=== PATIENT | male | born 1940 | race Caucasian/White ===

== ENCOUNTER 2016-06-22 13:06 | Emergency (ER) | payer MEDICARE, OTHER ==
--- NOTE | 2016-06-22 13:24 | EDM.PDOC ---
ED HPI GI/ABDOMINAL - General Chief Complaint: Gastrointestinal Problem Stated Complaint: SICK [phone] Time Seen by Provider: 06/22/16 13:23 Source of Information: Reports: Patient, RN, RN notes reviewed History Limitations: Reports: No limitations - History of Present Illness INITIAL COMMENTS - FREE TEXT/NARRATIVE: [place] with c/o sudden onset of "room spin" dizziness with nausea and vomiting. Pt thinks that he falls to his right with every episode. Onset was at midnight last night. Pt had just driven to [place] from his home in [place]. He denies headache, ear pain/pressure, visual changes, lightheadedness, palpitations, sinus congestion/pain/pressure, fever, chills, or head injury. He had a physical exam last week and was told that his exam and labs were normal. Denies any history of vertigo. Symptom Onset Date: 06/22/16 Symptom Onset Time: 00:00 Timing/Duration: Reports: Intermittent, Waxing/waning Location: generalized Severity: moderate Improves with: Reports: other (lying still) Worsens with: Reports: other (movement, head movement) Context: Denies: sick contact, bad/questionable food, out of country travel, recent surgery, recent trauma, lifting, activity/exercise Associated Symptoms: Reports: denies other symptoms - Related Data Allergies/ADRs: Allergies Allergy/AdvReac Type Severity Reaction Status Date / Time [id number]-[id number] Reductase Allergy Muscle Verified 06/22/16 13:15 Inhibitor Aches Home Meds: Home Meds Aspirin 162 mg PO BRK 06/22/16 [History] Levothyroxine [Synthroid] 50 mcg PO ACBREAKFAST 06/22/16 [History] Loratadine [Loratadine] 10 mg PO DAILY 06/22/16 [History] Metoprolol Tartrate [Metoprolol Tartrate] 12.5 mg PO DAILY 06/22/16 [History] Omeprazole 40 mg PO 06/22/16 [History] Ramipril [Ramipril] 2.5 mg PO DAILY 06/22/16 [History] Rosuvastatin [Crestor] 5 mg PO BEDTIME 06/22/16 [History] Past Medical History 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 ED EXAM, GI/ABD - Physical Exam Exam: See Below Exam Limited By: No limitations General Appearance: alert, WD/WN, no apparent distress Eyes: bilateral: EOMI, nystagmus (lateral gaze nystagmus) Ears: normal external exam, normal canal, hearing grossly normal, normal TMs Nose: no blood, other (mild inflammation of nasal mucosa with small amt. of clear nasal drainage.) Throat/Mouth: Normal lips, Normal teeth, Normal gums, Normal oropharynx, Normal voice, No airway compromise, Other (dry oral membranes) Head: atraumatic, normocephalic Neck: normal inspection, supple, non-tender, full range of motion Respiratory/Chest: no respiratory distress, no accessory muscle use, chest non- tender, decreased breath sounds. No: rales, rhonchi, wheezing Cardiovascular: normal peripheral pulses, regular rate, rhythm, no edema, no gallop, no JVD, no murmur, no rub GI/Abdominal: normal bowel sounds, soft, non tender, no organomegaly, no distention, no abnormal bruit (Male) Exam: Deferred Rectal (Males) Exam: Deferred Back Exam: normal inspection, full range of motion. No: CVA tenderness (L), CVA tenderness (R) Neurological: alert, oriented, CN II-XII intact, normal cognition, normal gait, no motor/sensory deficits Psychiatric: normal affect, normal mood Skin Exam: Warm, Dry, Intact, Normal color, No rash Course - Vital Signs Last Recorded V/S: Last Vital Signs Temp 36.6 C 06/22/16 14:34 Pulse 78 06/22/16 14:34 Resp 16 06/22/16 14:34 BP 111/56 L 06/22/16 14:34 Pulse Ox 93 L 06/22/16 14:34 - Orders/Labs/Meds Orders: Active Orders 24 hr Category Date Time Status Peripheral IV Care [RC] . DIRECTED Care 06/22/16 13:36 Active UA W/MICROSCOPIC [URIN] Stat Lab 06/22/16 16:46 Results Sodium Chloride 0.9% [Saline Flush] Med 06/22/16 13:35 Active 10 ml FLUSH ASDIRECTED PRN Peripheral IV Insertion Adult [OM.PC] Stat Oth 06/22/16 13:35 Ordered Medication Orders Sodium Chloride (Saline Flush) 10 ml FLUSH ASDIRECTED PRN PRN Reason: Keep Vein Open Last Admin: 06/22/16 13:46 Dose: 10 ml Labs: Laboratory Tests 06/22/16 06/22/16 06/22/16 Range/Units 13:45 13:45 16:46 WBC 23.5 H (5.0-10.0) 10^3/uL RBC 4.73 (4.6-6.2) 10^6/uL Hgb 14.7 (14.0-18.0) g/dL Hct 43.0 (40.0-54.0) % MCV 90.9 (80-100) fL MCH 31.1 (27.0-34.0) pg MCHC 34.2 (33.0-35.0) g/dL Plt Count 174 (150-450) 10^3/uL Neut % (Auto) 87.7 H (42.2-75.2) % Lymph % (Auto) 3.9 L (20.5-50.1) % Crosby % (Auto) 8.4 H (2-8) % Eos % (Auto) 0.0 L (1.0-3.0) % Baso % (Auto) 0.0 (0.0-1.0) % Sodium 134 L (135-145) mmol/L Potassium 3.8 (3.6-5.0) mmol/L Chloride 98 L (101-111) mmol/L Carbon Dioxide 26.0 (21.0-31.0) mmol/L Anion Gap 13.8 BUN 18 (7-18) mg/dL Creatinine 1.2 (0.6-1.3) mg/dL Est Cr Clr Drug Dosing 52.25 mL/min Estimated GFR (MDRD) 59 BUN/Creatinine Ratio 15.00 Glucose 188 H (74-105) mg/dL Calcium 9.1 (8.4-10.2) mg/dl Magnesium 1.5 L (1.8-2.5) mg/dL Total Bilirubin 1.3 H (0.2-1.0) mg/dL AST 34 (10-42) IU/L ALT 41 (10-60) IU/L Alkaline Phosphatase 49 (42-121) IU/L Total Protein 7.5 (6.7-8.2) g/dl Albumin 4.5 (3.2-5.5) g/dl Globulin 3.0 Albumin/Globulin Ratio 1.50 Urine Color Laura (YELLOW) Urine Appearance Cloudy (CLEAR) Urine pH 5.5 (5.0-9.0) Ur Specific [place] 1.020 (1.005-1.030) Urine Protein 100 H (NEGATIVE) Urine Glucose (UA) Negative (NEGATIVE) Urine Ketones Trace H (NEGATIVE) Urine Occult Blood Negative (NEGATIVE) Urine Nitrite Negative (NEGATIVE) Urine Bilirubin Small H (NEGATIVE) Urine Urobilinogen 1.0 (0.2-1.0) mg/dL Ur Leukocyte Esterase Negative (NEGATIVE) Meds: Medications Generic Name Dose Route Start Last Admin Trade Name Freq PRN Reason Stop Dose Admin Sodium Chloride 10 ml 06/22/16 13:35 06/22/16 13:46 Saline Flush FLUSH 10 ml ASDIRECTED PRN Administration Keep Vein Open Discontinued Medications Generic Name Dose Route Start Last Admin Trade Name Freq PRN Reason Stop Dose Admin Dexamethasone 20 mg 06/22/16 13:36 06/22/16 13:47 Dexamethasone IVPUSH 06/22/16 13:37 20 mg ONETIME ONE Administration Diazepam 5 mg 06/22/16 13:38 06/22/16 13:46 Valium IVPUSH 06/22/16 13:39 5 mg ONETIME ONE Administration Sodium Chloride 1,000 mls @ 999 mls/hr 06/22/16 13:36 06/22/16 13:47 Normal Saline IV 06/22/16 14:36 999 mls/hr .BOLUS ONE Administration Magnesium Sulfate 2 gm/ Premix 50 mls @ 25 mls/hr 06/22/16 14:59 06/22/16 15: 07 IV 06/22/16 16:58 25 mls/hr ONETIME ONE Administration Meclizine HCl 25 mg 06/22/16 13:40 06/22/16 13:47 Antivert PO 06/22/16 13:41 25 mg ONETIME ONE Administration Ondansetron HCl 4 mg 06/22/16 13:36 06/22/16 13:47 Zofran IV 06/22/16 13:37 4 mg ONETIME ONE Administration - Radiology Interpretation Free Text/Narrative:: CXR: no acute process. CT Head: no I.C. hemorrhage, no acute process; see Rad. report. CT Results Date: 06/22/16 Departure - Departure Time of Disposition: 17:21 Disposition: Home, Self-Care 01 Condition: fair Clinical Impression: Vertigo, Hypomagnesemia Leukocytosis Qualifiers: Leukocytosis type: unspecified Qualified Code(s): D72.829 - Elevated white blood cell count, unspecified Instructions: Vertigo, Ccda-[id number]-Mhjr, Leukocytosis Forms: ED Department Discharge Additional Instructions: Meclizine 25mg. Return to ER if symptoms return or any new symptoms such as fever develop. Follow up with your primary doctor next week for recheck. - My Orders Last 24 Hours: My Active Orders 06/22/16 13:35 Sodium Chloride 0.9% [Saline Flush] 10 ml FLUSH ASDIRECTED PRN Peripheral IV Insertion Adult [OM.PC] Stat 06/22/16 13:36 Peripheral IV Care [RC] . DIRECTED 06/22/16 16:46 UA W/MICROSCOPIC [URIN] Stat - Assessment/Plan Last 24 Hours: My Active Orders 06/22/16 13:35 Sodium Chloride 0.9% [Saline Flush] 10 ml FLUSH ASDIRECTED PRN Peripheral IV Insertion Adult [OM.PC] Stat 06/22/16 13:36 Peripheral IV Care [RC] . DIRECTED 06/22/16 16:46 UA W/MICROSCOPIC [URIN] Stat
[2016-06-22] MEDS ORDERED: Sodium Chloride 0.9% 10 ML Syringe FLUSH PRN (13:35)
[2016-06-22] MEDS ORDERED: Ondansetron 4 MG/2 ML SDV IV ONE (13:36)
[2016-06-22] MEDS ORDERED: Sodium Chloride 0.9% 1,000 ML IV ONE (13:36)
[2016-06-22] MEDS ORDERED: Dexamethasone 4 MG/ML SDV IVPUSH ONE (13:36)
[2016-06-22] MEDS ORDERED: Meclizine 12.5 MG Tab PO ONE (13:40)
[2016-06-22 14:35] VITALS: BP 111/56
--- NOTE | 2016-06-22 14:36 | CR ---
Clinical history: 75-year-old male abnormally leukocytosis (23,000) and cough. Interpretation: Sternotomy wires. Prominence of the aortic arch but.... normal cardiac silhouette without alveolar edema or dependent pleural effusion. No lung mass, hilar lymphadenopathy or focal lobar pneumonia. No atelectasis/collapse. No pneumothorax.
--- NOTE | 2016-06-22 14:48 | CT ---
CLINICAL HISTORY: 75-year-old male with leukocytosis (WBC 23,000), acute vertigo and vomiting. SCAN TECHNIQUE: Volume acquisition of data from an emergency unenhanced CT scan of the head and brai n obtained with the patient lying supine on the Siemens multislice CT scanner [place], [place]. All data archived in the PACS system for storage and study (bone/brain wi ndows). INTERPRETATION: Negative for age. (Tiny lacunar infarct on the left). 1. Uniformly thick bony calvarium. Symmetric clear pneumatization of the mastoid and paranasal sinus es. Nasal septum is straight in the midline. 2. Symmetric normal vargas-white matter pattern (atrophy). Mirror-image normal ventricular system. 3. No supratentorial or posterior fossa mass lesion. No hydrocephalus. 4. Subtle lacunar infarct involving the genu of the internal capsule, on the left. No ischemic lesi on. 5. No sign of acute intracerebral/intraventricular/subarachnoid bleed. 6. No abnormal extracerebral/intracranial epidural or subdural hematoma. 7. Physiologic midline pineal and symmetric choroid plexus calcifications. Cerebellum and brainstem unremarkable. CONCLUSION: No intracranial mass, hydrocephalus, ischemic infarct of any size or signs of acute intr acranial bleed. Normal sinuses. (Tiny lacunar infarct basal ganglia on the left).
[2016-06-22] MEDS ORDERED: Magnesium Sulfate/Water 2 GM in Premix Bag 1 BAG IV ONE (14:59)
== END 2016-06-22 17:39 | disposition home or self-care (01) ==
LOC: DL.ED 13:06
DX: E83.42 Hypomagnesemia (principal); D72.829 Elevated white blood cell count, unspecified; E03.9 Hypothyroidism, unspecified; Z88.8 Allergy status to other drugs, medicaments and biological substances; Z79.82 Long term (current) use of aspirin; Z79.899 Other long term (current) drug therapy
CPT/HCPCS: 36415; 70450; 71020; 80053; 81001; 83735; 85025; 96361; 96365; 96366; 96375; 99284; A9270; J1100; J2405; J3360; J7030; J7050; J3475